=== PATIENT | female | born 1940 | race Caucasian/White ===

== ENCOUNTER 2025-06-24 09:52 | Outpatient (CLI) | payer MEDICARE, BC | END 2025-06-24 09:53 | disposition home or self-care (01) | LOC: BICMAMMO 09:52 | PROVIDERS: ATTEND Internal Medicine Rheumatology | DX: M81.0 Age-related osteoporosis without current pathological fracture (principal) | CPT/HCPCS: 77080 ==

== ENCOUNTER 2025-07-31 09:25 | Outpatient (CLI) | payer MEDICARE, BC | END 2025-07-31 09:26 | disposition home or self-care (01) | LOC: BICMAMMO 09:25 | PROVIDERS: ATTEND Student in an Organized Health Care Education/Training Program | DX: Z12.31 Encounter for screening mammogram for malignant neoplasm of breast (principal); Z80.3 Family history of malignant neoplasm of breast | CPT/HCPCS: 77063; 77067 ==